=== PATIENT | male | born 1995 | race Caucasian/White ===

== ENCOUNTER 2022-06-15 16:13 | Emergency (ER) | payer OTHER ==
[2022-06-15 16:20] VITALS: BP 138/90; PULSE 70; RESP 16; TEMP 98.6; BMI 27.2
[2022-06-15] MEDS ORDERED: IBUPROFEN 600 MG TABLET (FP) PO ONE ×2 (17:10→17:11)
== END 2022-06-15 18:00 | disposition home or self-care (01) ==
LOC: JERFT 16:13
DX: S43.402A Unspecified sprain of left shoulder joint, initial encounter (principal)
CPT/HCPCS: 73030-TC-LT-FY; 99283-25

== ENCOUNTER 2022-11-20 06:33 | Emergency (ER) | payer OTHER ==
[2022-11-20 06:43] VITALS: BP 143/78; PULSE 81; RESP 17; TEMP 97.6; BMI 28.4
[2022-11-20] MEDS ORDERED: ACETAMINOPHEN 500 MG TABLET (FP) PO ONE (09:21)
[2022-11-20] MEDS ORDERED: ACETAMINOPHEN 500 MG TABLET (FP) ONE (09:33)
[2022-11-20 09:40] LABS: BASO % 0.7 % (0-2.0); EOS % 0.2 % (0-4.5); HEMATOCRIT 46.3 % (35.4-49); HEMOGLOBIN 15.3 GM/dL (11.7-16.9); LYMPH % 14.7 % (8-40); MCH 28.6 pg (25.7-33.7); MCHC 33.1 g/dl (32.0-35.9); MEAN CELL VOLUME 86.1 fl (80-96); MEAN PLT VOLUME 8.8 fl (7.5-11.1); MONO % 7.3 % (3.8-10.2); NEUT % 77.1 % (42.8-82.8); PLATELET COUNT 216 10^3/uL (134-434); RBC 5.38 M/mm3 (4.00-5.60); RDW 13.2 % (11.9-15.9)
[2022-11-20] MEDS ORDERED: BACITRACIN 0.9 GM PACKET TP ONE (10:10)
[2022-11-20] MEDS ORDERED: BACITRACIN ZINC 15 GM TUBE TOPICAL OINTMENT ONE (10:12)
[2022-11-20 10:39] LABS: ALBUMIN 4.7 g/dl (3.4-5.0); BLOOD UREA NITROGEN 22.7 mg/dL (7-18); CALCIUM 9.5 mg/dL (8.5-10.1)
[2022-11-20 10:42] LABS: CREATININE 1.2 mg/dL (0.55-1.3)
[2022-11-20 10:43] LABS: BILIRUBIN,TOTAL 0.6 mg/dL (0.2-1); TOT PROT 7.9 g/dl (6.4-8.2)
== END 2022-11-20 10:14 | disposition home or self-care (01) ==
LOC: JER 06:33 → JERFT 06:33
DX: T59.811A Toxic effect of smoke, accidental (unintentional), initial encounter (principal); J70.5 Respiratory conditions due to smoke inhalation; X08.8XXA Exposure to other specified smoke, fire and flames, initial encounter
CPT/HCPCS: 36415; 80053; 82375; 85025; 99283-25

== ENCOUNTER 2023-12-15 22:21 | Emergency (ER) | payer OTHER ==
[2023-12-15 22:34] VITALS: BP 135/75; PULSE 59; RESP 18; TEMP 97.8; BMI 27.9
== END 2023-12-15 23:05 | disposition home or self-care (01) ==
LOC: JER 22:21 → JERFT 22:21
DX: M25.512 Pain in left shoulder (principal); S49.92XA Unspecified injury of left shoulder and upper arm, initial encounter; X50.0XXA Overexertion from strenuous movement or load, initial encounter
CPT/HCPCS: 73030-TC-LT-FY; 99283-25

== ENCOUNTER → 2023-12-31 | Day surgery (SDC) | payer OTHER | END | disposition home or self-care (01) | LOC: JRADIR 10:56 | PROVIDERS: ATTEND Orthopaedic Surgery | PROC: BP39YZZ Magnetic Resonance Imaging (MRI) of Left Shoulder using Other Contrast (ICD-10-PCS; principal; 2023-12-31) | DX: M25.512 Pain in left shoulder (principal) | CPT/HCPCS: 23350; 73040-TC-FY; 73222-TC ==

== ENCOUNTER 2024-08-20 08:54 | Emergency (ER) | payer OTHER ==
[2024-08-20 09:36] VITALS: BP 122/73; PULSE 70; RESP 18; TEMP 98.3; BMI 27.2
[2024-08-20] MEDS ORDERED: IBUPROFEN 600 MG TABLET (FP) PO ONE (10:22)
[2024-08-20] MEDS: IBUPROFEN 600 MG TABLET (FP) PO ONE (10:24)
== END 2024-08-20 10:40 | disposition home or self-care (01) ==
LOC: JERFT 08:54
DX: S46.812A Strain of other muscles, fascia and tendons at shoulder and upper arm level, left arm, initial encounter (principal); R53.83 Other fatigue; X50.1XXA Overexertion from prolonged static or awkward postures, initial encounter
CPT/HCPCS: 99283-25